=== PATIENT | female | born 1930 | race Caucasian/White ===

== ENCOUNTER 2016-09-27 17:01 | Inpatient (IN) | payer BC, MEDICARE ==
[~2016-09-27] VITALS: Ht 162.6 cm; Wt 52.7 kg
[2016-09-27] MEDS ORDERED: SALINE FLUSH 10 ML FLUSH PRN (22:10)
[2016-09-27] MEDS ORDERED: ACETAMINOPHEN 325 MG TAB PO PRN (22:10)
[2016-09-28] VITALS (7 sets, daily range): BP systolic 138–198; RESP 16–20; TEMP 97.9–98.7; Ht 162.6 cm; Wt 52.7 kg
[2016-09-28] MEDS ORDERED: SODIUM CHLORIDE 0.9% FLUSH BAG 500 ML IV SCH (06:00)
[2016-09-28] MEDS ORDERED: SALINE FLUSH 10 ML FLUSH SCH (08:00)
[2016-09-28] MEDS ORDERED: Aspirin 325 MG TAB PO SCH (09:00)
[2016-09-28] MEDS ORDERED: Atorvastatin 20 MG TAB PO SCH (21:00)
== END 2016-09-28 12:00 | disposition home or self-care (01) | DRG 69 ==
LOC: ENRESERVDT → ENRESERVTM → ENRESERV → ER 17:01 → EMR 22:07 → PCU 23:57
PROVIDERS: ADMIT Internal Medicine; ATTEND Internal Medicine
CPT/HCPCS: 36415; 70450; 70551; 80048; 80053; 80061; 81001; 82553; 84484; 85025; 85610; 85730; 87088; 93005; 94799; 99223; 99238

== ENCOUNTER 2016-10-02 03:55 | Observation (INO) | payer MEDICARE ==
[~2016-10-02] VITALS: Ht 165.1 cm; Wt 53.2 kg
[2016-10-02] VITALS (7 sets, daily range): BP systolic 139–170; RESP 16–20; TEMP 97.2–98.5; Ht 165.1 cm; Wt 53.2 kg
[2016-10-02] MEDS ORDERED: MORPHINE 2 MG/ML SYR ONE ×2 (05:31→06:19)
[2016-10-02] MEDS ORDERED: ONDANSETRON 4 MG VIAL ONE (05:36)
[2016-10-02] MEDS ORDERED: ASPIRIN 81 MG CHEW TAB PO STA (09:19)
[2016-10-02] MEDS ORDERED: TEMAZEPAM 7.5 MG CAP PO PRN ×2 (09:20→09:30)
[2016-10-02] MEDS ORDERED: MORPHINE 2 MG/ML SYR IV PRN (09:20)
[2016-10-02] MEDS ORDERED: NITROGLYCERIN 50 MG/250 ML 250 ML IV PRN (09:20)
[2016-10-02] MEDS ORDERED: TRAMADOL 50 MG TAB PO PRN (09:20)
[2016-10-02] MEDS ORDERED: NITROGLYCERIN SL 0.4 MG TAB SL PRN (09:20)
[2016-10-02] MEDS ORDERED: ONDANSETRON 4 MG VIAL IV PRN (09:20)
[2016-10-02] MEDS ORDERED: ACETAMINOPHEN 325 MG TAB PO PRN (09:20)
[2016-10-02] MEDS ORDERED: SALINE FLUSH 10 ML FLUSH PRN (09:20)
[2016-10-02] MEDS ORDERED: DOCUSATE SOD 100 MG CAP PO PRN (09:20)
[2016-10-02] MEDS ORDERED: LORAZEPAM 0.5 MG TAB PO PRN (09:20)
[2016-10-02] MEDS ORDERED: ASPIRIN EC 81 MG TAB PO SCH (09:25)
[2016-10-02] MEDS ORDERED: amLODIPine 5 MG TAB PO SCH (10:50)
[2016-10-02] MEDS: NITROGLYCERIN 2% OINT 1 INCH PKT TOPICAL SCH ×2 (11:10→17:54)
[2016-10-02] MEDS: LISINOPRIL 20 MG TAB PO SCH (11:10)
[2016-10-02] MEDS ORDERED: amLODIPine 5 MG TAB PO ONE (13:00)
[2016-10-02] MEDS: ATENOLOL 50 MG TAB PO SCH (17:54)
[2016-10-02] MEDS: SALINE FLUSH 10 ML FLUSH SCH (20:11)
[2016-10-03] MEDS: NITROGLYCERIN 2% OINT 1 INCH PKT TOPICAL SCH ×3 (00:55→12:49)
[2016-10-03 03:30] VITALS: BP_SYST 141; RESP 18; TEMP 98.4
[2016-10-03] MEDS ORDERED: SODIUM CHLORIDE 0.9% FLUSH BAG 500 ML IV SCH (06:00)
[2016-10-03 07:37] VITALS: BP_SYST 146; RESP 18; TEMP 98.6
[2016-10-03] MEDS: LISINOPRIL 20 MG TAB PO SCH (08:20)
[2016-10-03] MEDS: SALINE FLUSH 10 ML FLUSH SCH (08:20)
[2016-10-03] MEDS ORDERED: amLODIPine 10 MG TAB PO SCH (09:00)
[2016-10-03] MEDS ORDERED: ASPIRIN EC 81 MG TAB PO SCH (09:00)
[2016-10-03] MEDS ORDERED: ASPIRIN 81 MG CHEW TAB PO SCH (09:00)
[2016-10-03 11:14] VITALS: BP_SYST 140; RESP 18; TEMP 98.8
[2016-10-03 15:26] VITALS: BP_SYST 148; RESP 18; TEMP 99.1
[2016-10-03] MEDS: ATENOLOL 50 MG TAB PO SCH ×2 (17:00→17:48)
[2016-10-03 17:39] VITALS: BP_SYST 148; RESP 18; TEMP 99.1
== END 2016-10-03 16:56 | disposition home or self-care (01) ==
LOC: ENRESERVTM → ENRESERVDT → ER 03:55 → EMR 08:05 → ENPENDDIS 08:05 → PCU2 09:12
PROVIDERS: ADMIT Internal Medicine Cardiovascular Disease; ATTEND Internal Medicine Cardiovascular Disease
CPT/HCPCS: 36415 ×2; 71010 ×2; 80053 ×2; 80061 ×2; 82550 ×2; 83735 ×2; 84484 ×2; 85025 ×2; 85610 ×2; 85730 ×2; 93005 ×2; 93306 ×2; 94799; 96374 ×2; 96375 ×2; 96376 ×2; 99285; G0378; J2405

== ENCOUNTER 2016-10-11 10:12 | Observation (INO) | payer MEDICARE ==
[~2016-10-11] VITALS: Ht 165.1 cm; Wt 50.3 kg
[2016-10-11] MEDS ORDERED: ASPIRIN 81 MG CHEW TAB ONE (10:24)
[2016-10-11] MEDS ORDERED: TRAMADOL 50 MG TAB PO PRN (11:25)
[2016-10-11] MEDS ORDERED: ONDANSETRON 4 MG VIAL IV PRN (11:25)
[2016-10-11] MEDS ORDERED: TEMAZEPAM 15 MG CAP PO PRN (11:25)
[2016-10-11] MEDS ORDERED: LORAZEPAM 0.5 MG TAB PO PRN (11:25)
[2016-10-11] MEDS ORDERED: NITROGLYCERIN SL 0.4 MG TAB SL PRN (11:25)
[2016-10-11] MEDS ORDERED: ACETAMINOPHEN 325 MG TAB PO PRN (11:25)
[2016-10-11] MEDS ORDERED: TEMAZEPAM 7.5 MG CAP PO PRN (11:25)
[2016-10-11] MEDS ORDERED: DOCUSATE SOD 100 MG CAP PO PRN (11:25)
[2016-10-11] MEDS ORDERED: ALU/MAG/SIM 30 ML UDC PO PRN (11:25)
[2016-10-11 12:09] VITALS: BP_SYST 174; RESP 16; TEMP 97.9
[2016-10-11 12:25] VITALS: Ht 165.1 cm; Wt 50.3 kg
[2016-10-11] MEDS ORDERED: ONDANSETRON 4 MG VIAL ONE (12:48)
[2016-10-11] MEDS ORDERED: MORPHINE 4 MG/ML SYR ONE (12:49)
[2016-10-11] MEDS ORDERED: CEFTRIAXONE 1 GM VIAL ONE (14:10)
[2016-10-11] MEDS ORDERED: SODIUM CHLORIDE 0.9% 100 ML IV ONE (14:10)
[2016-10-11] MEDS: MORPHINE 2 MG/ML SYR IV PRN (14:38)
[2016-10-11 14:50] VITALS: BP_SYST 170; RESP 16; TEMP 97.8
[2016-10-11] MEDS ORDERED: hePARIN in D5W (40 UNITS/ML) 500 ML IV SCH (16:25)
[2016-10-11] MEDS ORDERED: ATENOLOL 50 MG TAB PO SCH (17:00)
[2016-10-11] MEDS: LISINOPRIL 20 MG TAB PO SCH (17:21)
[2016-10-11] MEDS: ISOSORBIDE MONO 30 MG TAB PO SCH (17:21)
[2016-10-11] MEDS: amLODIPine 5 MG TAB PO SCH (17:21)
[2016-10-11 19:15] VITALS: BP_SYST 141; RESP 16; TEMP 98.4
[2016-10-11 23:27] VITALS: BP_SYST 130; RESP 16; TEMP 98.4
[2016-10-12] VITALS (10 sets, daily range): BP systolic 116–136; RESP 16; TEMP 97.8–98
[2016-10-12] MEDS: NITROGLYCERIN SL 0.4 MG TAB SL PRN ×3 (01:22→01:35)
[2016-10-12] MEDS: MORPHINE 2 MG/ML SYR IV PRN (01:40)
[2016-10-12] MEDS ORDERED: ASPIRIN 81 MG CHEW TAB PO SCH ×2 (08:00→09:00)
[2016-10-12] MEDS: amLODIPine 5 MG TAB PO SCH (08:11)
[2016-10-12] MEDS: ISOSORBIDE MONO 30 MG TAB PO SCH (08:11)
[2016-10-12] MEDS: LISINOPRIL 20 MG TAB PO SCH (08:12)
[2016-10-13] MEDS ORDERED: ISOSORBIDE MONO 60 MG TAB PO SCH (09:00)
== END 2016-10-12 11:21 | disposition home or self-care (01) ==
LOC: ENRESERVDT → ENRESERVTM → ER 10:12 → ENPENDDIS 11:34 → EMR 11:34 → 5THW 12:14
PROVIDERS: ADMIT Internal Medicine Cardiovascular Disease; ATTEND Internal Medicine Cardiovascular Disease
DX: R07.9 Chest pain, unspecified (principal); I12.9 Hypertensive chronic kidney disease with stage 1 through stage 4 chronic kidney disease, or unspecified chronic kidney disease; N18.4 Chronic kidney disease, stage 4 (severe); I25.10 Atherosclerotic heart disease of native coronary artery without angina pectoris; Z95.5 Presence of coronary angioplasty implant and graft; M19.90 Unspecified osteoarthritis, unspecified site; Z79.82 Long term (current) use of aspirin
CPT/HCPCS: 36415; 71010; 80053; 80061; 82550; 82553; 83735; 84484; 85025; 85610; 85730; 93005; 99285; G0378; J0696; J2270; J2405

== ENCOUNTER 2016-10-19 10:46 | Emergency (ER) | payer MEDICARE ==
[2016-10-19] MEDS ORDERED: DUONEB INH ONE ×2 (11:53)
== END 2016-10-19 14:26 | disposition home or self-care (01) ==
LOC: ER 10:46
DX: R06.00 Dyspnea, unspecified (principal); I50.1 Left ventricular failure, unspecified; J15.9 Unspecified bacterial pneumonia; F17.200 Nicotine dependence, unspecified, uncomplicated
CPT/HCPCS: 36415; 71010; 80053; 82553; 83880; 84484; 85025; 93005; 94640